=== PATIENT | male | born 1990 | race Caucasian/White ===

== ENCOUNTER 2020-07-03 14:19 | Inpatient (IN) | payer MEDICAID ==
[~2020-07-03] VITALS: Ht 190.5 cm; Wt 78.5 kg
[2020-07-03 19:47] VITALS: BP 111/66
[2020-07-03] MEDS ORDERED: FLUO20SO9 PO (21:06)
[2020-07-03] MEDS ORDERED: INFLUENZA VIRUS VACCINE QVS 2020-21 (6MO+)/PF 60 MCG/0.5 ML SYRINGE IM ONE (21:15)
[2020-07-03] MEDS ORDERED: PNEUMOCOCCAL VACCINE POLYVALENT 0.5 ML VIAL [PPSV23] IM ONE (21:15)
[2020-07-03 21:56] VITALS: BP 120/70
[2020-07-03 21:58] LABS: GLUCOMETER DEV NAME(LOC) BV2S.; GLUCOSE,POINT OF CARE 115 MG/DL (70-110)
[2020-07-03] MEDS ORDERED: MAG HYDROX/AL HYDROX/SIMETH ES 30 ML SUSPENSION UDCUP PO PRN (22:00)
[2020-07-03] MEDS ORDERED: OMEPRAZOLE 20 MG CAPSULE PO PRN (22:00)
[2020-07-03] MEDS ORDERED: MAGNESIUM HYDROXIDE SUSPENSION 30 ML UDCUP PO PRN (22:00)
[2020-07-03] MEDS ORDERED: ONDANSETRON HCL 4 MG TABLET PO PRN (22:00)
[2020-07-03] MEDS ORDERED: DOCUSATE SODIUM 100 MG CAPSULE PO PRN (22:00)
[2020-07-03] MEDS ORDERED: LOPERAMIDE HCL 2 MG CAPSULE PO PRN (22:00)
[2020-07-03] MEDS ORDERED: CloNIDine HCL 0.1 MG TABLET PO PRN (22:00)
[2020-07-03] MEDS ORDERED: BACITRACIN 28 GM OINTMENT TP PRN (22:00)
[2020-07-03] MEDS ORDERED: PETROLATUM,WHITE 28 GM JELLY TP PRN (22:00)
[2020-07-03] MEDS ORDERED: ALBUTEROL SULFATE HFA 90 MCG/PUFF 8 GM INHALER IH PRN (22:00)
[2020-07-03] MEDS ORDERED: BENZOCAINE/MENTHOL LOZENGE PO PRN (22:00)
[2020-07-03] MEDS ORDERED: IBUPROFEN 600 MG TABLET PO PRN (22:00)
[2020-07-03] MEDS: LORazepam 2 MG TABLET PO PRN (23:41)
[2020-07-04 00:20] VITALS: BP 115/65
[2020-07-04] MEDS: ZOLPIDEM TARTRATE 10 MG TABLET PO PRN (02:38)
[2020-07-04] MEDS: NICOTINE POLACRILEX 2 MG LOZENGE PO PRN ×2 (07:01→13:33)
[2020-07-04] MEDS: LORazepam 2 MG TABLET PO PRN ×2 (07:01→13:35)
[2020-07-04 07:56] LABS: BASOPHILS % (AUTO) 0.5 % (0.0-2.0); EOSINOPHILS % (AUTO) 2.2 % (1.0-6.0); HEMATOCRIT 41.1 % (41-53); HEMOGLOBIN 14.4 g/dL (13.5-17.5); LYMPHOCYTES # (AUTO) 2.6 K/uL (1.0-4.8); LYMPHOCYTES % (AUTO) 41.5 % (22.0-44.0); MEAN CORPUSCULAR HEMOGLOBIN 31.2 pg (26.0-34.0); MEAN CORPUSCULAR HGB CONC 35.1 G/dL (31.0-37.0); MEAN CORPUSCULAR VOLUME 89 fL (80-100); MONOCYTES # (AUTO) 0.4 K/uL (0.1-1.0); MONOCYTES % (AUTO) 6.4 % (2.0-9.0); NEUTROPHILS # (AUTO) 3.1 K/uL (1.8-7.7); NEUTROPHILS % (AUTO) 49.4 % (40.0-70.0); PLATELET COUNT (AUTO) 208 K/uL (150-450); RED BLOOD CELL COUNT(AUTO) 4.62 MIL/uL (4.50-5.90); RED CELL DISTRIBUTION WIDTH 14.3 % (11.5-14.5)
[2020-07-04 08:20] VITALS: BP 118/69
[2020-07-04 08:22] LABS: ALANINE AMINOTRANSFERASE 42 U/L (12-78); ALBUMIN 3.4 g/dL (3.4-5.0); ALKALINE PHOSPHATASE 72 U/L (46-116); ANION GAP 5 mmol/L (8-16); ASPARTATE AMINOTRANSFERASE 20 U/L (15-37); BILIRUBIN,TOTAL 0.9 mg/dL (0.1-1.0); CALCIUM, TOTAL 8.8 mg/dL (8.8-10.5); CARBON DIOXIDE 31 mmol/L (22-29); CHLORIDE 105 mmol/L (98-107); CHOL/HDL RATIO 3.2 (4.2-7.3); CHOLESTEROL 104 mg/dL (131-200); CREATININE 0.65 mg/dL (0.60-1.30); GLOMERULAR FILTR. RATE CALC > 60 mL/min (>60); GLUCOSE,RANDOM 77 mg/dL (70-110); HDL CHOLESTEROL 33 mg/dL (40-60); LDL CHOL (CALC.) 61 mg/dL (0-130); POTASSIUM 4.4 mmol/L (3.5-5.1); SODIUM SERUM 141 mmol/L (136-145); THYROID STIMULATING HORMONE 0.74 uIU/mL (0.36-3.74); TOTAL PROTEIN, SERUM 6.5 g/dL (6.4-8.2); TRIGLYCERIDES 49 mg/dL (15-150); UREA NITROGEN, BLOOD 15 mg/dL (7-18)
[2020-07-04] MEDS: HALOPERIDOL 5 MG TABLET PO PRN (09:34)
[2020-07-04 16:28] VITALS: BP 104/61
[2020-07-04] MEDS: OLANZapine 5 MG TABLET PO SCH (20:44)
[2020-07-05 00:32] VITALS: BP 107/67
[2020-07-05 08:08] VITALS: BP 104/56
[2020-07-05 16:03] VITALS: BP 108/60
[2020-07-05] MEDS: ACETAMINOPHEN 325 MG TABLET PO PRN (16:03)
[2020-07-05] MEDS: LORazepam 2 MG TABLET PO PRN ×2 (16:03→20:34)
[2020-07-05] MEDS: NICOTINE POLACRILEX 2 MG LOZENGE PO PRN (16:04)
[2020-07-05 16:15] VITALS: BP 102/58
[2020-07-05] MEDS: OLANZapine 5 MG TABLET PO SCH (20:34)
[2020-07-05] MEDS: HALOPERIDOL 5 MG TABLET PO PRN (21:13)
[2020-07-06 06:00] VITALS: BP 125/79
[2020-07-06 08:03] VITALS: BP 122/81
[2020-07-06] MEDS: LORazepam 2 MG TABLET PO PRN ×2 (11:58→16:18)
[2020-07-06] MEDS: HALOPERIDOL 5 MG TABLET PO PRN (11:58)
[2020-07-06] MEDS: ACETAMINOPHEN 325 MG TABLET PO PRN ×2 (13:00→16:18)
[2020-07-06 16:08] VITALS: BP 104/60
[2020-07-06] MEDS: NICOTINE POLACRILEX 2 MG LOZENGE PO PRN (16:18)
[2020-07-06] MEDS: OLANZapine 5 MG TABLET PO SCH (21:03)
[2020-07-07 00:10] VITALS: BP 122/61
[2020-07-07] MEDS: ZOLPIDEM TARTRATE 10 MG TABLET PO PRN (00:20)
[2020-07-07] MEDS: LORazepam 2 MG TABLET PO PRN ×3 (00:20→08:29)
[2020-07-07 00:40] VITALS: BP 124/65
[2020-07-07] MEDS: ACETAMINOPHEN 325 MG TABLET PO PRN (00:59)
[2020-07-07] MEDS: NICOTINE POLACRILEX 2 MG LOZENGE PO PRN ×2 (01:48→09:28)
[2020-07-07] MEDS: HALOPERIDOL 5 MG TABLET PO PRN (05:29)
[2020-07-07 08:03] VITALS: BP 119/86
[2020-07-07] MEDS ORDERED: BUPR1FIL3 SL (16:28)
[2020-07-07] MEDS ORDERED: LORA-1000 PO (16:28)
== END 2020-07-07 13:45 | disposition left against medical advice (07) | DRG 750 ==
LOC: B2S 19:44
PROVIDERS: ADMIT Psychiatry & Neurology Psychiatry; ATTEND Psychiatry & Neurology Psychiatry
DX: F25.9 Schizoaffective disorder, unspecified (principal); E11.9 Type 2 diabetes mellitus without complications; F10.10 Alcohol abuse, uncomplicated; M54.9 Dorsalgia, unspecified; R45.851 Suicidal ideations; F41.9 Anxiety disorder, unspecified; G47.00 Insomnia, unspecified; F19.10 Other psychoactive substance abuse, uncomplicated; K59.00 Constipation, unspecified; G89.29 Other chronic pain; Z88.8 Allergy status to other drugs, medicaments and biological substances; Z72.0 Tobacco use; Z79.899 Other long term (current) drug therapy; Z28.21 Immunization not carried out because of patient refusal
CPT/HCPCS: 84439; 84443; 90686; 90732

== ENCOUNTER 2020-07-07 15:57 | Inpatient (IN) | payer MEDICAID, OTHER ==
[~2020-07-07] VITALS: Ht 190.5 cm; Wt 81.6 kg
[~2020-07-07 15:57] MED LIST: FLUO20SO9 PO
[2020-07-07] MEDS ORDERED: LORA-1000 PO (16:28)
[2020-07-07] MEDS ORDERED: BUPR1FIL3 SL (16:28)
[2020-07-07 16:46] LABS: BASOPHILS % (AUTO) 0.6 % (0.0-2.0); EOSINOPHILS % (AUTO) 1.8 % (1.0-6.0); HEMATOCRIT 43.9 % (41-53); HEMOGLOBIN 15.2 g/dL (13.5-17.5); LYMPHOCYTES # (AUTO) 3.2 K/uL (1.0-4.8); LYMPHOCYTES % (AUTO) 33.2 % (22.0-44.0); MEAN CORPUSCULAR HEMOGLOBIN 30.8 pg (26.0-34.0); MEAN CORPUSCULAR HGB CONC 34.7 G/dL (31.0-37.0); MEAN CORPUSCULAR VOLUME 89 fL (80-100); MONOCYTES # (AUTO) 0.6 K/uL (0.1-1.0); MONOCYTES % (AUTO) 6.1 % (2.0-9.0); NEUTROPHILS # (AUTO) 5.6 K/uL (1.8-7.7); NEUTROPHILS % (AUTO) 58.3 % (40.0-70.0); PLATELET COUNT (AUTO) 229 K/uL (150-450); RED BLOOD CELL COUNT(AUTO) 4.94 MIL/uL (4.50-5.90); RED CELL DISTRIBUTION WIDTH 14.7 % (11.5-14.5)
[2020-07-07 17:12] LABS: ANION GAP 7 mmol/L (8-16); CALCIUM, TOTAL 9.2 mg/dL (8.8-10.5); CARBON DIOXIDE 27 mmol/L (22-29); CHLORIDE 103 mmol/L (98-107); CREATININE 1.15 mg/dL (0.60-1.30); GLOMERULAR FILTR. RATE CALC > 60 mL/min (>60); GLUCOSE,RANDOM 109 mg/dL (70-110); POTASSIUM 4.3 mmol/L (3.5-5.1); SODIUM SERUM 137 mmol/L (136-145); UREA NITROGEN, BLOOD 18 mg/dL (7-18)
[2020-07-07 17:18] LABS: ALANINE AMINOTRANSFERASE 35 U/L (12-78); ALBUMIN 3.7 g/dL (3.4-5.0); ALKALINE PHOSPHATASE 80 U/L (46-116); ASPARTATE AMINOTRANSFERASE 13 U/L (15-37); BILIRUBIN,TOTAL 0.6 mg/dL (0.1-1.0)
[2020-07-07 17:47] LABS: AMPHET/METH SCREEN,URINE NEGATIVE (NEGATIVE); BARBITURATE SCREEN, URINE NEGATIVE (NEGATIVE); BENZODIAZEPINES SCREEN,URINE NEGATIVE (NEGATIVE); CANNABINOID SCREEN,URINE POSITIVE (NEGATIVE); COCAINE SCREEN,URINE NEGATIVE (NEGATIVE); METHADONE SCREEN, URINE NEGATIVE (NEGATIVE); OPIATE SCREEN,URINE NEGATIVE (NEGATIVE)
[2020-07-07 17:52] LABS: PHENCYCLIDINE SCREEN,URINE NEGATIVE (NEGATIVE)
[2020-07-07 18:52] LABS: COVID AG,FIA SOURCE NASOPHARYNGEAL
[2020-07-07] MEDS: ZOLPIDEM TARTRATE 10 MG TABLET PO PRN (23:53)
[2020-07-08] MEDS: LORazepam 2 MG TABLET PO PRN ×4 (02:36→19:40)
[2020-07-08] MEDS: HALOPERIDOL 5 MG TABLET PO PRN ×2 (02:36→16:12)
[2020-07-08 02:59] VITALS: BP 123/83
[2020-07-08] MEDS ORDERED: INFLUENZA VIRUS VACCINE QVS 2020-21 (6MO+)/PF 60 MCG/0.5 ML SYRINGE IM ONE (03:15)
[2020-07-08] MEDS ORDERED: MAGNESIUM HYDROXIDE SUSPENSION 30 ML UDCUP PO PRN (07:30)
[2020-07-08] MEDS ORDERED: ONDANSETRON HCL 4 MG TABLET PO PRN (07:30)
[2020-07-08] MEDS ORDERED: CloNIDine HCL 0.1 MG TABLET PO PRN (07:30)
[2020-07-08] MEDS ORDERED: ALBUTEROL SULFATE HFA 90 MCG/PUFF 8 GM INHALER IH PRN (07:30)
[2020-07-08] MEDS ORDERED: DOCUSATE SODIUM 100 MG CAPSULE PO PRN (07:30)
[2020-07-08] MEDS ORDERED: LOPERAMIDE HCL 2 MG CAPSULE PO PRN (07:30)
[2020-07-08] MEDS ORDERED: OMEPRAZOLE 20 MG CAPSULE PO PRN (07:30)
[2020-07-08] MEDS ORDERED: PETROLATUM,WHITE 28 GM JELLY TP PRN (07:30)
[2020-07-08] MEDS ORDERED: MAG HYDROX/AL HYDROX/SIMETH ES 30 ML SUSPENSION UDCUP PO PRN (07:30)
[2020-07-08] MEDS ORDERED: BACITRACIN 28 GM OINTMENT TP PRN (07:30)
[2020-07-08] MEDS ORDERED: BENZOCAINE/MENTHOL LOZENGE PO PRN (07:30)
[2020-07-08] MEDS: NICOTINE 21 MG/24 HOUR PATCH TD SCH (08:01)
[2020-07-08] MEDS: ACETAMINOPHEN 325 MG TABLET PO PRN ×2 (08:01→16:12)
[2020-07-08 08:40] VITALS: BP 112/70
[2020-07-08 16:06] VITALS: BP 143/87
[2020-07-08] MEDS: ZOLPIDEM TARTRATE 10 MG TABLET PO PRN (21:07)
[2020-07-08] MEDS: OLANZapine 5 MG TABLET PO SCH (21:07)
[2020-07-09 01:30] VITALS: BP 119/79
[2020-07-09] MEDS: HALOPERIDOL 5 MG TABLET PO PRN ×3 (02:34→14:05)
[2020-07-09] MEDS: LORazepam 2 MG TABLET PO PRN ×4 (02:34→20:25)
[2020-07-09] MEDS: NICOTINE 21 MG/24 HOUR PATCH TD SCH (08:27)
[2020-07-09 08:43] VITALS: BP 107/65
[2020-07-09] MEDS: ACETAMINOPHEN 325 MG TABLET PO PRN (08:45)
[2020-07-09 16:27] VITALS: BP 106/74
[2020-07-09] MEDS: TiZANidine HCL 4 MG TABLET PO PRN (16:59)
[2020-07-09] MEDS: OLANZapine 5 MG TABLET PO SCH (20:25)
[2020-07-09] MEDS: ZOLPIDEM TARTRATE 10 MG TABLET PO PRN (20:25)
[2020-07-10 05:28] VITALS: BP 118/88
[2020-07-10] MEDS: LORazepam 2 MG TABLET PO PRN ×4 (06:13→20:28)
[2020-07-10] MEDS ORDERED: DiphenhydrAMINE HCL 50 MG/ML VIAL IM ONE (08:30)
[2020-07-10] MEDS ORDERED: HALOPERIDOL LACTATE 5 MG/ML VIAL IM ONE (08:30)
[2020-07-10] MEDS ORDERED: LORazepam 2 MG/ML VIAL IM ONE (08:30)
[2020-07-10 08:44] VITALS: BP 148/87
[2020-07-10] MEDS: NICOTINE 21 MG/24 HOUR PATCH TD SCH (09:16)
[2020-07-10 10:14] VITALS: BP 132/80
[2020-07-10] MEDS: TiZANidine HCL 4 MG TABLET PO PRN ×2 (10:14→23:50)
[2020-07-10] MEDS: HALOPERIDOL 5 MG TABLET PO PRN ×2 (15:12→23:49)
[2020-07-10 16:39] VITALS: BP 98/62
[2020-07-10] MEDS: ZOLPIDEM TARTRATE 10 MG TABLET PO PRN (20:28)
[2020-07-10] MEDS: OLANZapine 5 MG TABLET PO SCH (20:28)
[2020-07-11 00:08] VITALS: BP 115/75
[2020-07-11] MEDS: LORazepam 2 MG TABLET PO PRN ×2 (05:48→10:52)
[2020-07-11] MEDS: HALOPERIDOL 5 MG TABLET PO PRN ×2 (05:48→10:52)
[2020-07-11] MEDS: TiZANidine HCL 4 MG TABLET PO PRN (05:49)
[2020-07-11] MEDS: NICOTINE 21 MG/24 HOUR PATCH TD SCH (08:20)
[2020-07-11 08:30] VITALS: BP 101/60
[2020-07-11] MEDS ORDERED: OLAN5TAB2 PO (14:49)
[2020-07-13 05:14] LABS: HIV 1-2 SCREEN 4TH GEN W/RFLX Non Reactive (Non Reactive)
== END 2020-07-11 15:00 | disposition home or self-care (01) | DRG 750 ==
LOC: EMS 16:01 → B3A 18:41
PROVIDERS: ADMIT Psychiatry & Neurology Psychiatry; ATTEND Psychiatry & Neurology Psychiatry
DX: F25.9 Schizoaffective disorder, unspecified (principal); F17.200 Nicotine dependence, unspecified, uncomplicated; K31.84 Gastroparesis; R45.851 Suicidal ideations; F41.9 Anxiety disorder, unspecified; G47.00 Insomnia, unspecified; K59.00 Constipation, unspecified; Z59.0 Homelessness; Z03.818 Encounter for observation for suspected exposure to other biological agents ruled out
CPT/HCPCS: 87081; 87389; 87426; 90686; G0480; J1200; J1630; J2060